=== PATIENT | female | born 1995 | race Caucasian/White ===

== ENCOUNTER 2021-05-06 21:23 | Outpatient (CLI) | payer OTHER ==
[2021-05-06] MEDS ORDERED: PRENATAL CAPLE1 EAC1 (22:22)
[2021-05-06] MEDS ORDERED: FOLIC ACID20 MG (22:22)
== END 2021-05-07 10:52 | disposition home or self-care (01) ==
LOC: OBS/DEL 21:23
PROVIDERS: ATTEND Obstetrics & Gynecology
DX: O26.892 Other specified pregnancy related conditions, second trimester (principal); R10.2 Pelvic and perineal pain; Z3A.20 20 weeks gestation of pregnancy

== ENCOUNTER 2021-05-15 16:37 | Outpatient (CLI) | payer OTHER ==
[~2021-05-15 16:37] MED LIST: FOLIC ACID20 MG; PRENATAL CAPLE1 EAC1
== END 2021-05-16 10:47 | disposition home or self-care (01) ==
LOC: OBS/DEL 16:37
PROVIDERS: ATTEND Obstetrics & Gynecology
DX: O26.892 Other specified pregnancy related conditions, second trimester (principal); N20.0 Calculus of kidney; Z3A.21 21 weeks gestation of pregnancy

== ENCOUNTER 2021-05-24 07:16 | Outpatient (CLI) | payer OTHER | END 2021-05-24 07:22 | disposition home or self-care (01) | LOC: SONOGRAMA 07:16 → MAMO-SONO 07:30 | PROVIDERS: ATTEND Obstetrics & Gynecology | DX: N20.0 Calculus of kidney (principal); Z3A.22 22 weeks gestation of pregnancy ==

== ENCOUNTER 2021-05-29 13:27 | Emergency (ER) | payer OTHER ==
[~2021-05-29] VITALS: Ht 147.3 cm; Wt 38.6 kg
[2021-05-29] MEDS ORDERED: CYCLOBENZAPRINE10 MG PO (18:23)
== END 2021-05-29 18:51 | disposition home or self-care (01) ==
LOC: ER 13:27
DX: R07.89 Other chest pain (principal); M94.0 Chondrocostal junction syndrome [Tietze]

== ENCOUNTER 2021-07-03 12:47 | Inpatient (IN) | payer OTHER ==
[~2021-07-03] VITALS: Ht 147.3 cm; Wt 42.2 kg
[~2021-07-03 12:47] MED LIST changes: +CYCLOBENZAPRINE10 MG PO
== END 2021-07-08 16:27 | disposition home or self-care (01) | DRG 833 ==
LOC: OBS/DEL 12:47 → OB/GYN 07-04 10:06 → LDR 07-04 10:06 → OB/GYN 07-05 16:24
PROVIDERS: ADMIT Obstetrics & Gynecology; ATTEND Obstetrics & Gynecology
PROC: BT4JZZZ Ultrasonography of Kidneys and Bladder (ICD-10-PCS; principal; 2021-07-03)
PROC: 4A1HXFZ Monitoring of Products of Conception, Cardiac Rhythm, External Approach (ICD-10-PCS; 2021-07-04)
DX: O26.833 Pregnancy related renal disease, third trimester (principal); N20.0 Calculus of kidney; Z3A.28 28 weeks gestation of pregnancy; Z20.822 Contact with and (suspected) exposure to COVID-19

== ENCOUNTER 2021-09-09 18:54 | Inpatient (IN) | payer OTHER ==
[~2021-09-09] VITALS: Ht 147.3 cm; Wt 45.8 kg
== END 2021-09-12 17:38 | disposition home or self-care (01) | DRG 807 ==
LOC: OBS/DEL 18:54 → OB/GYN 09-10 04:26 → OBS/DEL 09-10 04:26 → LDR 09-10 04:26 → OB/GYN 09-10 08:29
PROVIDERS: ADMIT Obstetrics & Gynecology; ATTEND Obstetrics & Gynecology
PROC: 10E0XZZ Delivery of Products of Conception, External Approach (ICD-10-PCS; principal; 2021-09-10)
PROC: 0W8NXZZ Division of Female Perineum, External Approach (ICD-10-PCS; 2021-09-10)
PROC: 10907ZC Drainage of Amniotic Fluid, Therapeutic from Products of Conception, Via Natural or Artificial Opening (ICD-10-PCS; 2021-09-10)
PROC: 4A1HXFZ Monitoring of Products of Conception, Cardiac Rhythm, External Approach (ICD-10-PCS; 2021-09-10)
DX: O80 Encounter for full-term uncomplicated delivery (principal); Z37.0 Single live birth; Z3A.38 38 weeks gestation of pregnancy

== ENCOUNTER 2023-12-28 08:07 | Outpatient (CLI) | payer OTHER | END 2023-12-28 08:09 | disposition home or self-care (01) | LOC: PRENATAL 08:07 | PROVIDERS: ATTEND Obstetrics & Gynecology Maternal & Fetal Medicine | DX: O35.9XX0 Maternal care for (suspected) fetal abnormality and damage, unspecified, not applicable or unspecified (principal); O35.3XX0 Maternal care for (suspected) damage to fetus from viral disease in mother, not applicable or unspecified; O44.00 Complete placenta previa NOS or without hemorrhage, unspecified trimester; Z3A.19 19 weeks gestation of pregnancy ==

== ENCOUNTER 2024-03-04 17:26 | Inpatient (IN) | payer OTHER ==
[~2024-03-04] VITALS: Ht 149.9 cm; Wt 43.1 kg
[2024-03-04] MEDS ORDERED: BETAMETHASONE ACETATE,SOD PHOS 30 MG/5 ML ML IM STA (17:29)
[2024-03-04] MEDS ORDERED: AMPICILLIN SODIUM 2,000 MG VIAL IV STA (17:30)
[2024-03-04] MEDS ORDERED: RINGERS SOLUTION,LACTATED 1,000 ML IV SCH (17:45)
[2024-03-04] MEDS ORDERED: PRENATAL TABLE1 EAC1 PO (17:50)
[2024-03-04 18:03] LABS: PH,URINE 7.5 (5.0-8.0); URINE APPEARANCE Clear; URINE BILIRRUBIN Negative (NEGATIVE); URINE BLOOD Negative; URINE COLOR Yellow; URINE GLUCOSE Negative (NEGATIVE); URINE LEUKOCYTE Small; URINE NITRATE Negative; URINE PROTEIN Negative (NEGATIVE); URINE UROBILINOGEN 0.2 E.U./dl
[2024-03-04 18:06] LABS: URINE BACTERIA 476.2 uL (0.0-1933); URINE EPITHELIAL CELLS 20.2 uL (0.0-38.8); URINE RBC 3.7 uL (0.0-20.8); URINE WBC 20.5 uL (0.0-23.2)
[2024-03-04 18:28] LABS: ALBUMIN 2.7 gm/dL (3.4-5.0); BILIRUBIN TOTAL 0.39 mg/dL (0.3-1.2); CALCIUM 9.6 mg/dL (8.5-10.1); CREATININE SERUM 0.53 mg/dL (0.55-1.02); GFR 138.38; GLOBULINA 3.7 G/DL (2.4-3.5); POTASSIUM 3.47 mEq/L (3.5-5.1); TOTAL PROTEIN 6.4 gm/dL (6.4-8.2)
[2024-03-04 18:29] LABS: HEMATOCRIT 31.8 % (36.0-45.00); HEMOGLOBIN 11.5 g/dL (12.0-15.00); MEAN CORPUSCULAR HEMOGLOBIN 33.6 pg (27.00-32.0); MEAN CORPUSCULAR HGB CONC 36.1 g/dl (32.0-36.0); PLATELET COUNT 239 K/uL (150-450); RED BLOOD COUNT 3.41 M/uL (4.00-6.00); RED CELL DISTRIBUTION WIDTH 13.2 % (11.5-14.5)
[2024-03-05] MEDS ORDERED: AMPICILLIN SODIUM 1,000 MG VIAL IV SCH
[2024-03-05] MEDS ORDERED: NIFEDIPINE 30 MG TAB.SA.OSM PO SCH (10:25)
[2024-03-05] MEDS ORDERED: BETAMETHASONE ACETATE,SOD PHOS 30 MG/5 ML ML IM ONE (17:30)
[2024-03-05] MEDS ORDERED: BETAMETHASONE ACETATE,SOD PHOS 30 MG/5 ML ML ONE (18:18)
[2024-03-06] MEDS ORDERED: Procardia Xl 30MG TA PO (14:12)
== END 2024-03-06 15:29 | disposition home or self-care (01) | DRG 833 ==
LOC: LDR 17:26 → OB/GYN 17:26 → LDR 03-05 20:17 → OB/GYN 03-05 20:41
PROVIDERS: ADMIT Obstetrics & Gynecology; ATTEND Obstetrics & Gynecology
PROC: 4A1HXCZ Monitoring of Products of Conception, Cardiac Rate, External Approach (ICD-10-PCS; principal; 2024-03-04)
PROC: BY4FZZZ Ultrasonography of Third Trimester, Single Fetus (ICD-10-PCS; 2024-03-04)
DX: O60.03 Preterm labor without delivery, third trimester (principal); Z3A.29 29 weeks gestation of pregnancy; Z20.822 Contact with and (suspected) exposure to COVID-19

== ENCOUNTER 2024-06-23 04:00 | Day surgery (SDC) | payer OTHER ==
[~2024-06-23] VITALS: Ht 149.9 cm; Wt 38.6 kg
[~2024-06-23 04:00] MED LIST changes: +PRENATAL TABLE1 EAC1 PO; +Procardia Xl 30MG TA PO
[2024-06-23] MEDS ORDERED: CEFAZOLIN SODIUM 1,000 MG VIAL ONE ×2 (09:28→13:52)
[2024-06-23] MEDS ORDERED: POVIDONE-IODINE 118 ML BOTT TOP ONE (13:52)
[2024-06-23] MEDS ORDERED: TRAM1TAB98 PO (15:41)
== END 2024-06-23 18:00 | disposition home or self-care (01) ==
LOC: CIR.AMB 04:00
PROVIDERS: ATTEND Obstetrics & Gynecology
DX: Z30.2 Encounter for sterilization (principal); Z88.6 Allergy status to analgesic agent